=== PATIENT | female | born 1955 | race Caucasian/White ===

== ENCOUNTER → 2017-03-04 | Outpatient (CLI) | payer BC ==
[2017-03-04 07:53] LABS: ALBUMIN 3.9 g/dL (3.5-5.0); BUN/CREATININE RATIO 19.8 (6.0-26.0); CALCIUM 9.3 mg/dL (8.4-10.2); POTASSIUM 3.6 mmol/L (3.6-5.0); TOTAL BILIRUBIN 0.8 mg/dL (0.2-1.3); TOTAL PROTEIN 6.9 g/dL (6.3-8.2)
== END ==
LOC: LAB 07:05
PROVIDERS: Family Medicine
DX: Z82.49 Family history of ischemic heart disease and other diseases of the circulatory system (principal); Z83.3 Family history of diabetes mellitus; Z13.1 Encounter for screening for diabetes mellitus; Z13.6 Encounter for screening for cardiovascular disorders

== ENCOUNTER → 2017-03-06 | Outpatient (CLI) | payer BC | LOC: LAB 09:58 | DX: Z00.00 Encounter for general adult medical examination without abnormal findings (principal); R73.01 Impaired fasting glucose; E78.2 Mixed hyperlipidemia; E66.9 Obesity, unspecified; Z12.31 Encounter for screening mammogram for malignant neoplasm of breast; Z23 Encounter for immunization ==

== ENCOUNTER → 2017-03-12 | Outpatient (CLI) | payer BC | LOC: RAD 16:00 → MAMMO 16:00 | DX: Z12.31 Encounter for screening mammogram for malignant neoplasm of breast (principal) ==

== ENCOUNTER → 2017-03-26 | Outpatient (CLI) | payer BC ==
[~2017-03-26] VITALS: Ht 170.2 cm; Wt 93.6 kg
[2017-03-26 17:01] LABS: EOS # 0.1 (0.04-0.40); EOS % 1.1 % (1.0-5.0); HEMATOCRIT 43.5 % (37.0-47.0); HEMOGLOBIN 14.2 g/dL (12.5-16.0); LYMPH# 2.2 (1.50-4.00); MEAN CELL VOLUME 89 fl (78-100); MEAN CORPUSCULAR HEMOGLOBIN 29 pg (27-31); MEAN CORPUSCULAR HGB CONC 33 g/dL (33-37); MONO # 0.3 (0.20-0.80); NEU # 1.8 (1.40-6.50); PLATELET COUNT 284 K/mm3 (130-400); RED BLOOD COUNT 4.88 M/mm3 (4.10-5.30); RED CELL DISTRIBUTION WIDTH 13.8 % (11.5-14.5); WHITE BLOOD COUNT 4.5 K/mm3 (4.8-10.8)
[2017-03-26 17:25] VITALS: BP 136/79
[2017-03-26 17:32] LABS: CKMB ISOENZYME 0.7 ng/mL (0.6-3.5)
[2017-03-26 17:33] LABS: TROPONIN-I < 0.03 ng/mL (0.00-0.06)
[2017-03-26 17:44] LABS: ALBUMIN 4.2 g/dL (3.5-5.0); BUN/CREATININE RATIO 19.1 (6.0-26.0); CALCIUM 9.9 mg/dL (8.4-10.2); POTASSIUM 3.9 mmol/L (3.6-5.0); TOTAL BILIRUBIN 0.5 mg/dL (0.2-1.3)
== END ==
LOC: AMSURD 16:35
PROVIDERS: Nurse Practitioner Family
DX: R05 Cough (principal); R06.02 Shortness of breath; R53.81 Other malaise; R42 Dizziness and giddiness; R07.89 Other chest pain

== ENCOUNTER → 2017-04-29 | Day surgery (SDC) | payer BC ==
[2017-03-26 17:25] VITALS: BP 136/79
== END ==
LOC: MSO 07:27
DX: Z12.11 Encounter for screening for malignant neoplasm of colon (principal); D12.3 Benign neoplasm of transverse colon
CPT/HCPCS: 00811; J2704; J7120

== ENCOUNTER → 2021-01-27 | Outpatient (CLI) | payer BC ==
[2021-01-27 11:19] LABS: ALBUMIN 4.1 g/dL (3.4-4.8)
[2021-01-27 11:20] LABS: CALCIUM 9.5 mg/dL (8.3-10.5)
[2021-01-27 11:21] LABS: TOTAL PROTEIN 6.8 g/dL (6.2-8.1)
[2021-01-27 11:23] LABS: TOTAL BILIRUBIN 0.7 mg/dL (0.2-1.2)
== END ==
LOC: LAB 10:58
PROVIDERS: Family Medicine
DX: E78.2 Mixed hyperlipidemia (principal); R73.03 Prediabetes

== ENCOUNTER → 2021-01-30 | Outpatient (CLI) | payer BC | LOC: LAB 10:03 | DX: R73.03 Prediabetes (principal) ==